=== PATIENT | male | born 1945 | race Two or more races ===

== ENCOUNTER 2017-03-21 10:00 | Inpatient (IN) | payer OTHER ==
[~2017-03-21] VITALS: Ht 170.2 cm; Wt 79.4 kg
[2017-03-21] MEDS ORDERED: COZAAR50 MG PO ×2 (14:16→14:19)
[2017-03-21] MEDS ORDERED: TANSULOSIN PO (14:20)
[2017-03-21] MEDS ORDERED: LEVOTHYR PO (14:21)
== END 2017-03-29 15:52 | disposition home or self-care (01) | DRG 331 ==
LOC: O/R 03-26 06:30 → SURG 03-26 06:30 → SURH 03-26 10:00 → SURG 03-26 11:10 → SURH 03-26 18:15 → SURG 03-29 15:52
PROVIDERS: Colon & Rectal Surgery
PROC: 07TC4ZZ Resection of Pelvis Lymphatic, Percutaneous Endoscopic Approach (ICD-10-PCS; 2017-03-26)
PROC: 0DTF4ZZ Resection of Right Large Intestine, Percutaneous Endoscopic Approach (ICD-10-PCS; principal; 2017-03-26 18:15)
DX: D12.0 Benign neoplasm of cecum (principal); I10 Essential (primary) hypertension

== ENCOUNTER 2022-11-24 16:58 | Emergency (ER) | payer OTHER ==
[~2022-11-24] VITALS: Ht 170.2 cm; Wt 87.1 kg
[~2022-11-24 16:58] MED LIST: COZAAR50 MG PO; IRBESARTAN150 MG PO; LEVOTHYR PO; LIPITOR20 MG PO; PROSCAR5 MG PO; TANSULOSIN PO
[2022-11-24] MEDS ORDERED: TAMS0.4C (17:10)
[2022-11-24 20:04] LABS: HEMATOCRIT 44.1 % (39.0-48.0); HEMOGLOBIN 14.5 g/dL (13-16.00); MEAN CORPUSCULAR HEMOGLOBIN 28.6 pg (27.00-32.0); MEAN CORPUSCULAR HGB CONC 32.9 g/dl (32.0-36.0); PLATELET COUNT 230 K/uL (150-450); RED BLOOD COUNT 5.07 M/uL (4.00-6.00)
[2022-11-24 20:12] LABS: CALCIUM 9.1 mg/dL (8.5-10.1); CREATININE SERUM 0.82 mg/dL (0.70-1.30); GFR 91.35; POTASSIUM 4.06 mEq/L (3.5-5.1)
[2022-11-24] MEDS ORDERED: PYRIDIUM100 M1 PO (22:10)
[2022-11-24] MEDS ORDERED: LEVOFLOXACIN750 MG PO (22:10)
== END 2022-11-24 22:37 ==
LOC: ER 16:59
PROVIDERS: Nurse Practitioner Family
DX: N39.0 Urinary tract infection, site not specified (principal); T83.511A Infection and inflammatory reaction due to indwelling urethral catheter, initial encounter; I10 Essential (primary) hypertension; E03.8 Other specified hypothyroidism; Z88.0 Allergy status to penicillin
CPT/HCPCS: 36415; 96365; 99282; J1885; J1956

== ENCOUNTER 2022-12-25 06:23 | Day surgery (SDC) | payer OTHER ==
[2022-11-21 08:46] LABS: HEMATOCRIT 43.3 % (39.0-48.0); HEMOGLOBIN 14.5 g/dL (13-16.00); MEAN CELL VOLUME 85.5 fL (80.0-100.00); MEAN CORPUSCULAR HEMOGLOBIN 28.6 pg (27.00-32.0); MEAN CORPUSCULAR HGB CONC 33.4 g/dl (32.0-36.0); PLATELET COUNT 229 K/uL (150-450); RED BLOOD COUNT 5.07 M/uL (4.00-6.00); RED CELL DISTRIBUTION WIDTH 13.6 % (11.5-14.5)
[2022-11-21 08:52] LABS: PH,URINE 5.5 (5.0-8.0); URINE APPEARANCE Turbid; URINE BILIRRUBIN Negative (NEGATIVE); URINE BLOOD Large; URINE COLOR Yellow; URINE GLUCOSE Negative (NEGATIVE); URINE LEUKOCYTE Moderate; URINE NITRATE Negative; URINE UROBILINOGEN 0.2 E.U./dl
[2022-11-21 08:55] LABS: URINE EPITHELIAL CELLS 6.8 uL (0.0-38.8); URINE WBC 1879.5 uL (0.0-23.2)
[2022-11-21 09:07] LABS: INR 1.01; PARTIAL THROMBOPLASTIN TIME 27.3 SECONDS (22.0-34.0); PROTHROMBIN TIME 10.6 SECONDS (9.0-11.5)
[2022-11-21 09:19] LABS: CALCIUM 8.9 mg/dL (8.5-10.1); CREATININE SERUM 0.82 mg/dL (0.70-1.30); GFR 91.35; POTASSIUM 4.69 mEq/L (3.5-5.1)
[2022-11-21 09:31] LABS: URINE CRYSTALS NEGATIVE /HPF; URINE PROTEIN 100 (NEGATIVE); URINE YEAST FEW /hpf
[~2022-12-25] VITALS: Ht 170.2 cm; Wt 87.1 kg
[~2022-12-25 06:23] MED LIST changes: +LEVOFLOXACIN750 MG PO; +PYRIDIUM100 M1 PO; +TAMS0.4C
[2022-12-25] MEDS ORDERED: LEVOFLOXACIN750 MG PO (08:53)
[2022-12-25] MEDS ORDERED: PYRIDIUM200 MG PO (08:54)
== END 2022-12-25 13:50 | disposition home or self-care (01) ==
LOC: O/R 06:23 → CIR.AMB 06:23
PROVIDERS: ATTEND Surgery
DX: N35.919 Unspecified urethral stricture, male, unspecified site (principal); N40.0 Benign prostatic hyperplasia without lower urinary tract symptoms; N40.1 Benign prostatic hyperplasia with lower urinary tract symptoms; Z88.0 Allergy status to penicillin; Z20.822 Contact with and (suspected) exposure to COVID-19; E78.5 Hyperlipidemia, unspecified; I10 Essential (primary) hypertension; E03.9 Hypothyroidism, unspecified